=== PATIENT | male | born 1980 | race Caucasian/White ===

== ENCOUNTER 2024-06-11 12:00 | Emergency (ER) | payer OTHER ==
[~2024-06-11] VITALS: Ht 172.7 cm; Wt 65.0 kg
[2024-06-11 12:07] VITALS: TEMP 98.8
[2024-06-11 12:33] LABS: COVID AG,FIA SOURCE NASAL SWAB
[2024-06-11 12:37] VITALS: BP 126/82; PULSE 87; RESP 16; O2SAT 99
[2024-06-11 13:09] LABS: INFLUENZA TYPE A NEGATIVE FOR TYPE A (NEGATIVE); INFLUENZA TYPE B NEGATIVE FOR TYPE B (NEGATIVE)
[2024-06-11 13:11] LABS: SARS-COV2 (COVID) ANTIGEN,FIA Negative (Negative)
[2024-06-11] MEDS: IBUPROFEN 400 MG TABLET PO ONE (13:37)
[2024-06-11] MEDS: GuaiFENesin/D-METHORPHAN/PHENYLEPH 5 ML LIQUID ORAL.SYG PO ONE (13:37)
[2024-06-11] MEDS: ACETAMINOPHEN 325 MG TABLET PO ONE (13:38)
[2024-06-11] MEDS ORDERED: AZIT-164 PO (14:10)
[2024-06-11] MEDS ORDERED: BENZ-227 PO (14:10)
[2024-06-11] MEDS: AZITHROMYCIN 500 MG TABLET PO ONE (14:25)
== END 2024-06-11 14:35 | disposition home or self-care (01) ==
LOC: EMS 12:00
DX: J18.9 Pneumonia, unspecified organism (principal); Z20.822 Contact with and (suspected) exposure to COVID-19
CPT/HCPCS: 99284; 71045; 87426; 87804; J0456